=== PATIENT | female | born 1955 | race Caucasian/White ===

== ENCOUNTER 2018-03-29 15:23 | Emergency (ER) | payer OTHER ==
[~2018-03-29] VITALS: Ht 172.7 cm; Wt 90.7 kg
[~2018-03-29 15:23] MED LIST: Allergy Relief10 M1 PO; CLON.1 PO; CLON.2; NEBI5; Naprosyn500 MG PO; Prednisone20 MG PO
== END 2018-03-29 17:14 | disposition home or self-care (01) ==
LOC: ER 15:23
DX: S81.812A Laceration without foreign body, left lower leg, initial encounter (principal); V47.5XXA Car driver injured in collision with fixed or stationary object in traffic accident, initial encounter; Z88.0 Allergy status to penicillin; Z88.8 Allergy status to other drugs, medicaments and biological substances; Z79.899 Other long term (current) drug therapy; Z87.891 Personal history of nicotine dependence
CPT/HCPCS: 12032; 99283

== ENCOUNTER 2022-07-06 09:15 | Day surgery (SDC) | payer OTHER ==
[~2022-07-06] VITALS: Ht 167.6 cm; Wt 89.4 kg
[~2022-07-06 09:15] MED LIST changes: +ACET325 PO; +IBU600 M1 PO; +XYZAL5 MG
--- NOTE | 2022-07-06 09:53 | NUR ---
History, Chart, Medications and Allergies reviewed before start of procedure. Lungs clear T/O to Auscultation. Patient States Post-Procedure ride home has been arranged. Ambulatory in Day Surgery. Patient states colon prep results clear. Patient confirms NPO status and agrees with scheduled surgery. Pre-Op teaching done. Pt verbalizes understanding.
--- NOTE | 2022-07-06 10:31 | NUR ---
07/06/22 1031 Flako Montgomery HISTORY, CHART, MEDICATIONS AND ALLERGIES REVIEWED BEFORE START OF PROCEDURE. PATIENT CONFIRMS NPO STATUS AND AGREES WITH SCHEDULED PROCEDURE. 3-LEAD EKG REVIEWED WITH PHYSICIAN PRIOR TO START OF PROCEDURE. MONITOR INTACT WITH CONTINUOUS PULSE OXIMETRY,CAPNOGRAPHY, 3-LEAD EKG, INTERMITTENT BP. SUPPLEMENTAL O2 TO BE TITRATED THROUGHOUT PROCEDURE TO MAINTAIN O2 SATURATION ABOVE 90%. PATIENT DETERMINED TO BE ASA APPROPRIATE FOR PROPOFOL SEDATION PRIOR TO START OF PROCEDURE BY DR. CONTEH.
--- NOTE | 2022-07-06 11:21 | NUR ---
RECIEVED PATIENT VSS WAKING UP GIVEN COFFEE AND WATER TO DRINK
--- NOTE | 2022-07-06 11:48 | NUR ---
Discharge instructions reviewed with patient. Patient verbalizes understanding. Copy given to patient to take home GIVEN HAND OUTS ON HIGH FIBER AND DIVERTICULOSIS Patient States Post-Procedure ride home has been arranged. Discharged via wheelchair to private car for ride home.
== END 2022-07-06 23:05 | disposition home or self-care (01) ==
LOC: ORSCMMR 09:15 → ORSCSDS 10:30 → ORSCMMR 10:30 → ORD 10:30 → ORSCMMR 23:05
PROVIDERS: Internal Medicine Gastroenterology
PROC: 0DBM8ZX Excision of Descending Colon, Via Natural or Artificial Opening Endoscopic, Diagnostic (ICD-10-PCS; principal; 2022-07-06 10:30)
PROC: 0DBL8ZX Excision of Transverse Colon, Via Natural or Artificial Opening Endoscopic, Diagnostic (ICD-10-PCS; principal; 2022-07-06 10:30)
DX: Z12.11 Encounter for screening for malignant neoplasm of colon (principal); D12.3 Benign neoplasm of transverse colon; K57.30 Diverticulosis of large intestine without perforation or abscess without bleeding; G47.33 Obstructive sleep apnea (adult) (pediatric); Z86.010 Personal history of colon polyps; Z83.71 Family history of colonic polyps
CPT/HCPCS: 88305; J2704; J7120